=== PATIENT | female | born 1970 | race Caucasian/White ===

== ENCOUNTER 2022-01-18 00:18 | Day surgery (SDC) | payer OTHER, SELFPAY ==
[2022-01-08 14:50] VITALS: BMI 25.3
--- NOTE | 2022-01-08 14:59 | PC.NURSE ---
Report to the Outpatient Waiting Room, entrance under the green pavilion located off [facility], at time _0600_ on date __01/18/22__. OR Time: _07__. - You and your visitor will be asked a series of questions to screen for COVID 19 for your protection. - A mask is required within the hospital. Preoperative COVID Testing Requirements: No COVID Test needed if: (proof is required; if not received patient will have Rapid Test prior to entry) - Patient has received COVID Vaccine at least 14 days prior to procedure date or - Patient has positive COVID test result within last 90 days of surgery date. COVID Test needed if above criteria is not met If not COVID vaccinated a COVID test must be conducted within 72 hours of surgery and patient is asked to isolate self from time of testing until procedure. You will go to the [facility] for your COVID testing. The [facility] is located at the corner of [address] [facility]. You will only be called if COVID results are positive and your surgeon may reschedule your elective surgery date. Patients may have clear liquids (water, carbonated beverages, clear teas, apple juice) until 3 hours prior to surgery with a maximum of 20 ounces. - No food from midnight until time of surgery - Infants may have breast milk until 4 hours before surgery, formula 6 hours prior to surgery. - Children will be allowed to drink immediately following surgery. If applicable, please bring a bottle or sippy cup to assist with drinking. Juice, water, soda, and popsicles are readily available. For infants on formula, please bring formula the day of surgery. Pacifiers are allowed. Take the following medications with a SIP of water the morning of surgery: Medications to discontinue per physician _vitamins stop 3 days prior_ Date to take last dose Please no make-up, nail czech, hairspray, perfume, deodorant, or body powder the day of surgery. No jewelry (including any body piercings) or valuables the day of surgery, leave them at home. Please take a shower or bath the night before, or the morning of, surgery with an antibacterial soap. Wear comfortable, loose fitting clothing. Children are encouraged to wear pajamas. - Jewelry must be removed prior to entering the operating room. Rings and piercings that are not removed may be cut off. - The hospital will not accept responsibility for valuables. - Please leave all valuables, including medications, at home the day of surgery. If you are going home after surgery, a licensed dedicated truck driver must drive you home. - NO public transportation without another adult. - We recommend that an adult stay with you for 24 hours following discharge. - We also recommend that you do not drive, make important decision, drink alcoholic beverages, or take any drugs that were not prescribed by your health care provider for at least 24 hours after your discharge time. For Pediatric surgeries, we recommend two adults accompany the child home (only one inside the building at this time). One visitor will be allowed to accompany the patient into the hospital. Patients visitor will be instructed to remain with patient at all times or leave the building. We will allow the visitor to come back to the postoperative area when patient is ready. Follow any additional instructions given to you from your surgeon. Telephone instructions given to _patient_and asked if any additional questions and then verbalized understanding. Patient advised to call surgeon office or pre surgery nurse liaison [phone] if any additional questions.
[2022-01-18] VITALS (8 sets, daily range): BP systolic 110–151; BP diastolic 57–85; PULSE 49–67; RESP 14–16; TEMP 36.3–36.5; O2SAT 99–100; BMI 25.9
--- NOTE | 2022-01-18 06:31 | W.PM.PROC2 ---
Procedure Note - Detailed Date of Procedure 01/18/22 Pre-op Diagnosis bilateral breast implant rupture Post-op Diagnosis Same Procedure Performed Bilateral breast implant removal with capsulectomy Surgeon Cheng Chaudhry MD Anesthesia General Findings Bilateral ruptured smooth silicone implants Total capsulectomy Description of Procedure Preoperatively the risks, benefits, alternatives were discussed in extensive detail. I want her to be very realistic about the risks involved as well as expectations. These are textured implants she would like to send the capsule pathology. There was she declines. She understands the risks of this decision. She would like proceed drain placement. She understands the literature on this method. She understands there is risk that she would need future drainage or even an additional drain placement at a 2nd stage. I made sure answered all of her questions to satisfaction. She understands the emotional effect this can have with implant removal. She understands her long-term options. All questions were answered. Consent obtained. She was taken to the operating room placed supine on the operating room table. Anesthesia was provided by anesthesiology and she was prepped and draped in a standard sterile fashion. Surgical time-out was taken. 1% lidocaine and 0.25% marcaine with epinephrine was used anesthetize as a field block. A 15 blade used to excise previous IMF scar. Dissection was continued down until the capsule was identified and I did a near complete capsulectomy. Implants were removed and these were ruptured as above. I then copiously irrigated with more than of saline containing solution. Closed with 2-0 Vicryl followed by 3-0 strata fix in a running subcuticular 4-0 Monocryl and steri-strips. Surgical bra was placed. She was woken taken to the PACU without difficulty. All instrument sponge counts were correct at the end of the case. Estimated Blood Loss 50 Drains No Packing No Pathology None sent Complications No immediate complications Condition Stable Disposition PACU
--- NOTE | 2022-01-18 06:33 | ECG_ITS ---
Measurements Intervals [place] Rate: 48 P: [place]: 0 QRS: 26 QRSD: 98 T: 28 QT: 452 QTc: 405 Interpretive Statements SINUS BRADYCARDIA LOW QRS VOLTAGE IN PRECORDIAL LEADS BORDERLINE R WAVE PROGRESSION, ANTERIOR LEADS BORDERLINE T WAVE ABNORMALITY- ANTERIOR LEADS BASELINE ARTIFACT- I, II, AVR ABNORMAL ECG Electronically Signed On 01-18-2022 12:22:58 CDT by Richmond Mehta D.O.
--- NOTE | 2022-01-18 06:50 | WPDANESEPPF ---
Anes - Initial Pre Proc Eval Procedure: Operation Date: 01/18/22 07:30 Proposed Procedures p Removal Bilateral Breast Implants - Cheng Chaudhry MD Date/Time: 01/18/22 06:50 Surgeon: Cheng Chaudhry MD Pre Op Diagnosis: bilat breast implant rupture Patient Data Age: 51 Gender: F Height: 1.7 m Weight: 75.2 kg Last Vital Signs Temp 36.5 C 01/18/22 06:30 Pulse 56 L 01/18/22 06:30 Resp 16 01/18/22 06:30 BP 110/57 L 01/18/22 06:30 Pulse Ox 100 01/18/22 06:30 Allergies Allergy/AdvReac Type Severity Reaction Status Date / Time No Known Allergies Allergy Verified 01/18/22 06:21 Home Medications Medication Instructions Recorded Confirmed Type ezetimibe 10 mg tablet 10 mg PO DAILY 12/18/21 01/08/22 History latanoprost 0.005 % eye drops 1 drp EACH EYE DAILY 12/18/21 01/08/22 History lorazepam 1 mg tablet 1 mg PO DAILY PRN 12/18/21 01/08/22 History norethindrone-e.estradiol-iron [Lo 1 tablet PO DAILY 01/08/22 01/08/22 History Loestrin Fe] docusate sodium 100 mg capsule 100 mg PO DAILY #14 cap 01/16/22 Rx ondansetron 4 mg disintegrating 4 mg PO Q8H #21 tablet 01/16/22 Rx tablet hydrocodone 5 mg-acetaminophen 325 1 tablet PO Q6H PRN #30 tablet 01/17/22 01/17/22 Rx mg tablet Patient hx anesthesia problems: none Family hx anesthesia problems: none Results Review: All pre-operative results and documents have been reviewed as part of the pre-operative evaluation. [facility] Past Medical History Medical History (Updated 01/18/22 @ 06:50 by Migel Vieira DO) Anxiety Hyperlipidemia Social History Social History Smoking packs per day: 1 Smoking cigarettes per day: 20.0 Years smoked: 18 Smoking pack-years: 18.00 Smoking status: Former smoker Tobacco type: cigarettes Smoking end date: 12/29/08 Alcohol intake: former Alcohol use details: havent drank in 15 years Substance use: never Substance use type: does not use Last use: 13 years Living arrangements: with family Spiritual care concerns: No Anes - Eval Final PreProcedure Day of Procedure 01/18/22 06:50 Patient weight: overweight Heart: regular rate and rhythm Lungs: clear to auscultation and normal air movement Airway: Mallampati scale class II Neurological: alert and oriented Last oral intake: >/= 8 hours ASA classification: II Emergent: no Anesthetic plan: proceed Anesthesia type and monitoring: general LMA and standard monitoring Results Review: All pre-operative results and documents have been reviewed as part of the pre-operative evaluation. Informed Consent: The patient's anesthetic plan and its attendant risks and benefits were discussed with the patient/family/POA. Questions were solicited and answers provided to the satisfaction of the patient/family/POA.
--- NOTE | 2022-01-18 07:04 | WPDHPUPDATE1 ---
History and Physical Update Update Date/Time: 01/18/22 07:04 History and Physical has been reviewed, including an updated exam of the patient. There are NO changes in the patient's condition. Risks, benefits, and alternatives have been discussed and questions answered. Patient agrees to proceed with procedure.
[2022-01-18] MEDS: LACTATED RINGERS 1,000 ML 30 ML IV CONT ×2 (07:15→09:07)
--- NOTE | 2022-01-18 07:15 | SUR.PREOP ---
0700; FEMALE RN IN ROOM WHILE DR BRIDGES MARKED PT, ALONG WITH PT'S MOTHER
--- NOTE | 2022-01-18 07:25 | SUR.PREOP ---
PLACED ORDER FOR STAT EKG AT 0633. 0715, NO EKG YET. CALLED CARDIOLOGY. STATES THEY ARE ON THEIR WAY. WILFRIDO RELAY CHECKER NOTIFIED, RESHMA KRUEGER NURSE CLINICAL UNIT COORDINATOR NOTIFIED. 724; CALLED CARDIOLOGY AGAIN FOR STAT EKG. ON THEIR WAY.
--- NOTE | 2022-01-18 07:33 | SUR.PREOP ---
0732; EKG FINISHED. GIVEN TO DR ROJAS.
[2022-01-18] MEDS: ceFAZolin 2 GM/D5W 50 ML 2 GM/50 ML BAG IVPB (07:36)
[2022-01-18] MEDS: LIDO 1%/EPINEPHRINE/PF 1:200,000 30 ML VIAL XX (07:44)
[2022-01-18] MEDS: BUPIVACAINE HCL 0.25% PF 30 ML VIAL INFILTRATE (07:44)
[2022-01-18] MEDS: fentaNYL CITRATE INJ (*CRX) 100 MCG/2 ML VIAL 25 MCG IV PUSH ×2 (09:26→09:29)
[2022-01-18] MEDS: oxyCODONE HCL (*CRX) 5 MG TAB IR PO (10:17)
== END 2022-01-18 10:39 | disposition home or self-care (01) ==
PROVIDERS: PCP Family Medicine; Visit Provider Surgery Plastic and Reconstructive Surgery
PROC: 0HPT0JZ Removal of Synthetic Substitute from Right Breast, Open Approach (ICD-10-PCS; CPT 19371; principal; 2022-01-18 07:30)
DX: T85.43XA Leakage of breast prosthesis and implant, initial encounter (principal)
CPT/HCPCS: 19371; 93005; A9270; J0690; J1580; J2250; J2405; J2704; J3010; J7120